=== PATIENT | male | born 1945 | race Caucasian/White ===

== ENCOUNTER 2023-03-06 06:08 | Day surgery (SDC) | payer MEDICARE, SELFPAY ==
--- NOTE | 2023-03-06 | PATH_ITS ---
[facility] Accession Number: [id number] No. of containers..01 Tissue . 01 Material submitted: . rectum - RECTAL POLYP . 01 Diagnosis: Rectum, Biopsy: Tubular adenoma. Negative for high-grade dysplasia and malignancy. MRV 03/14/2023 1312 Local . 01 Electronically signed: . Maddie Riggins MD, Pathologist NPI- [id number] . 01 Gross description: . RECTAL POLYP: Received in formalin is 1 fragment(s) of ken[place], soft tissue measuring 0.6 x 0.4 x 0.3 cm submitted entirely in 1 cassette(s) /PRECIOUS 03/07/2023 2215 Local . 01 Pathologist provided ICD-10: Z12.11, D12.6 . 01 CPT . 777683 Specimen Comment: A courtesy copy of this report has been sent to [phone] Performed at: 01 [facility] [address] [place] [address], [place], [place] [id number] MD Hector Cunha MD Phone: [phone]
[2023-03-06] MEDS: LACTATED RINGERS 1,000 ML 42 ML IV (07:12)
[2023-03-06 07:16] VITALS: BMI 22.6
[2023-03-06 07:25] VITALS: BP 143/81; PULSE 63; RESP 16; TEMP 36.4; O2SAT 99
--- NOTE | 2023-03-06 07:46 | P.HP_ITS ---
History of Present Illness History of Present Illness Date Patient Seen: 03/06/23 Time Patient Seen: 07:46 Chief complaint: Colonoscopy Narrative: Osmar is a 77-year-old man with a history of colon polyps. His last colonoscopy was about [address] Shukla. No family history of colon cancer. FOR[facility], [facility] Surgical History (Updated 07/22/17 @ 06:32 by Conversion Provider) Status post hernia repair Family History (Updated 07/16/16 @ 00:00 by Conversion Provider) Father Heart disease Hypertension High cholesterol Sister Age: 81 Mental health problem Social History household members: spouse Smoking Status: Never smoker alcohol intake: current Meds Home Medications and Allergies Home Medications Medication Instructions Recorded Confirmed Type VITAMIN D (Vitamin D3) 2,000 unit PO QDAY ##0 06/25/11 03/06/23 History multivitamin (Multiple Vitamins 1 tab PO QDAY #0 tabs 01/11/16 03/06/23 History tablet) tamsulosin 0.4 mg capsule (Flomax) 0.4 mg PO QDAY #90 caps 08/22/16 03/06/23 Rx amlodipine 5 mg tablet (Norvasc) 5 mg PO QDAY #90 tabs 09/20/16 03/06/23 Rx atorvastatin 20 mg tablet (Lipitor) 20 mg PO HS #90 tabs 09/20/16 03/06/23 Rx hydrochlorothiazide 12.5 mg capsule 12.5 mg PO QDAY #90 caps 10/03/16 03/06/23 Rx zolpidem 5 mg tablet 5 mg PO HSP PRN Insomnia 03/06/23 03/06/23 History Allergies Allergy/AdvReac Type Severity Reaction Status Date / Time penicillin G Allergy Unknown ITCHING Unverified 07/02/17 13:08 JASSON Inhibitors AdvReac Unknown HYPERKALEMI Unverified 07/02/17 13:08 A erythromycin base AdvReac Unknown DEPRESSION/ Unverified 07/02/17 13:08 IRRITABLE Exam Vital Signs (past 8 hours): - 03/06/23 07:25 Temperature 97.6 F Pulse Rate 63 Respiratory Rate 16 Blood Pressure 143/81 H Pulse Oximetry 99 Oxygen Delivery Method Room Air Oxygen Delivery Method Room Air Const General: healthy appearing Assessment & Plan Assessment and plan (1) Personal history of colonic polyps: Status: Acute Plan We reviewed the risks and benefits of colonoscopy for personal history of colon polyps and he would like to proceed.
--- NOTE | 2023-03-06 08:12 | PM.OP.COLON ---
Operative Date/Time/Diagnoses Date of procedure: 03/06/23 Time of procedure: 08:12 Pre-op diagnosis: History of polyps Post-op diagnosis: same Procedure & Clinicians Study performed: Colonoscopy Same procedure as scheduled: Yes Surgeon: Wilbert Doan Procedure Notes Procedure in detail: Surgeon: Wilbert Doan MD Anesthesia: Sumanth Mora CRNA Procedure: The patient was brought to the endoscopy suite, placed in left lateral decubitus position. The patient was connected to monitoring devices. A time-out was performed. Sedation was administered. Once the patient was adequately sedated, a digital rectal exam was performed and was normal aside from an enlarged prostate. The scope was then inserted and advanced to the cecum where the appendiceal orifice was identified and photographed. The scope was then slowly withdrawn over greater than 6 minutes. The mucosa was thoroughly inspected. There were scattered diverticulosis greatest in the sigmoid colon. There was a 6 mm polyp in the mid rectum which was removed with a cold snare. The scope was retroflexed in the rectum. There were internal hemorrhoids. The scope was straightened and removed. The patient was awakened and brought to recovery. Scope withdrawal time: 9 minutes Sedation time: 18 minutes EBL: 2 mL Findings: Diverticulosis, 6 mm rectal polyp and internal hemorrhoids Post-procedure Disposition: PACU
[2023-03-06 08:13] VITALS: BP 71/44; PULSE 60; RESP 17; TEMP 36.2; O2SAT 96
[2023-03-06 08:16] VITALS: BP 72/44; PULSE 55; RESP 24; O2SAT 94
[2023-03-06 08:22] VITALS: BP 77/48; PULSE 55; RESP 16; TEMP 36.7; O2SAT 96
[2023-03-06 08:27] VITALS: BP 94/55; PULSE 52; RESP 16; O2SAT 96
[2023-03-06 08:46] VITALS: BP 110/63; PULSE 54; RESP 16; TEMP 36.6; O2SAT 96
== END 2023-03-06 08:51 | disposition home or self-care (01) ==
PROVIDERS: Family Provider Family Medicine; Referring Provider Surgery; Visit Provider Surgery
PROC: 0DJD8ZZ Inspection of Lower Intestinal Tract, Via Natural or Artificial Opening Endoscopic (ICD-10-PCS; CPT 45378; principal; 2023-03-06 07:45)
DX: Z12.11 Encounter for screening for malignant neoplasm of colon (principal); Z86.010 Personal history of colon polyps; K57.30 Diverticulosis of large intestine without perforation or abscess without bleeding; K64.8 Other hemorrhoids; D12.8 Benign neoplasm of rectum
CPT/HCPCS: 45385; J2704